=== PATIENT | male | born 1955 | race Caucasian/White ===

== ENCOUNTER 2019-03-25 06:13 | Emergency (ER) | payer OTHER ==
[2019-03-25 06:21] VITALS: BP 131/80; TEMP 98.1
--- NOTE | 2019-03-25 06:22 | ED ---
Male Urogenital HPI - General Stated complaint: male Time Seen by Provider: 03/25/19 06:18 Source: patient Mode of arrival: ambulatory Limitations: physical limitation - History of Present Illness Initial comments: He was a pleasant 63-year-old gentleman who has a history of prostatic hypertrophy for which she has been on Flomax for over a year, he recently had an episode of urinary retention and had a Devi catheter placed he followed up with urology and is scheduled to have a TURP procedure next week. He is currently vacationing in the area staying [place] a campground, he's been unable to urinate since last night. He denies any associated fevers chills nausea or vomiting. Patient denies any pain with urination yesterday prior to the onset of urinary retention. - Related Data Home Medications Medication Instructions Recorded Confirmed Simvastatin [Zocor] 20 mg PO DAILY 03/25/19 03/25/19 Tamsulosin HCl [Flomax] 0.4 mg PO BID 03/25/19 03/25/19 Allergies Allergy/AdvReac Type Severity Reaction Status Date / Time Penicillins Allergy Rash/Hives Verified 03/25/19 06:21 Review of Systems ROS Statement: Those systems with pertinent positive or pertinent negative responses have been documented in the HPI. ROS Other: All systems not noted in ROS Statement are negative. Past Medical History Past Medical History: Hyperlipidemia Additional Past Medical History / Comment(s): Enlarged prostate History of Any Multi-Drug Resistant Organisms: None Reported Past Surgical History: No Surgical Hx Reported Past Psychological History: No Psychological Hx Reported Smoking Status: Never smoker Past Alcohol Use History: Occasional Past Drug Use History: None Reported General Exam - General Exam Comments Initial Comments: Physical Exam GENERAL: Appears uncomfortable HENT: Normocephalic, Atraumatic. EYES: PERRL, EOMI PULMONARY: Unlabored respirations CARDIOVASCULAR: RRR ABDOMEN: Palpable bladder at the umbilicus Bladder scan was greater than a liter of urine SKIN: Skin is clear with no lesions or rashes and otherwise unremarkable. : Normal external genitalia NEUROLOGIC: Patient is alert and oriented x3. Moving all extremities spontaneously MUSCULOSKELETAL: Normal extremities with adequate strength and full range of motion. No lower extremity swelling or edema. No calf tenderness. PSYCHIATRIC: Normal psychiatric evaluation. Limitations: physical limitation Course Vital Signs 03/25/19 06:14 Temperature 98.1 F Pulse Rate 110 H Respiratory 18 Rate Blood Pressure 131/80 O2 Sat by Pulse 98 Oximetry Medical Decision Making - Medical Decision Making Patient was seen and evaluated immediately upon arrival to the emergency department Patient unable to urinate for greater than 12 hours, appears very uncomfortable has a palpable bladder, bladder scan was greater than 1 L, Devi catheter was placed Due to the fact that the patient did have a Devi catheter 1 week ago we will obtain a urine culture to ensure that there is no infectious process contri buting to patient's urinary retention Urinalysis with no signs of infection. Patient will be discharged home Devi catheter in place. Patient is comfortable with Devi catheter care and will follow up with his established urologist. - Lab Data Lab Results 03/25/19 Range/Units 06:40 Urine Color Light Yellow Urine Appearance Clear (Clear) Urine pH 6.0 (5.0-8.0) Ur Specific [place] 1.007 (1.001-1.035) Urine Protein Negative (Negative) Urine Glucose (UA) Negative (Negative) Urine Ketones Negative (Negative) Urine Blood Negative (Negative) Urine Nitrite Negative (Negative) Urine Bilirubin Negative (Negative) Urine Urobilinogen <2.0 (<2.0) mg/dL Ur Leukocyte Esterase Negative (Negative) Disposition Clinical Impression: Benign prostatic hypertrophy with urinary retention Disposition: HOME SELF-CARE Instructions (If sedation given, give patient instructions): Devi Catheter Placement and Care (ED) Is patient prescribed a controlled substance at d/c from ED?: No Referrals: Heriberto Mercedes MD [Primary Care Provider] - 1-2 days
[2019-03-25 06:47] LABS: Appearance,Urine Clear (Clear); Bilirubin,Urine Negative (Negative); Blood,Urine Negative (Negative); Color,Urine Light Yellow; Glucose,Urine (UA) Negative (Negative); Ketones,Urine Negative (Negative); Leukocyte Esterase,Urine Negative (Negative); Nitrite,Urine Negative (Negative); Protein,Urine Negative (Negative); Specific Gravity,Urine 1.007 (1.001-1.035); Urobilinogen,Urine <2.0 mg/dL (<2.0)
[2019-03-25 07:17] VITALS: PULSE 84; RESP 16
== END 2019-03-25 07:15 | disposition home or self-care (01) ==
LOC: EC 06:13
DX: N40.1 Benign prostatic hyperplasia with lower urinary tract symptoms (principal); R33.8 Other retention of urine; E78.5 Hyperlipidemia, unspecified; Z79.899 Other long term (current) drug therapy; Z88.0 Allergy status to penicillin
CPT/HCPCS: 51702; 81003; 99284